=== PATIENT | female | born 1960 | race Caucasian/White ===

== ENCOUNTER 2016-04-05 11:16 | Outpatient (CLI) | payer BC | END 2016-04-05 11:17 | disposition home or self-care (01) | DX: Z79.899 Other long term (current) drug therapy (principal); Z86.2 Personal history of diseases of the blood and blood-forming organs and certain disorders involving the immune mechanism; Z71.9 Counseling, unspecified ==

== ENCOUNTER 2016-04-23 14:09 | Outpatient (CLI) | payer BC | END 2016-04-23 14:10 | disposition home or self-care (01) | DX: Z12.31 Encounter for screening mammogram for malignant neoplasm of breast (principal) ==

== ENCOUNTER 2016-04-23 14:11 | Outpatient (CLI) | payer BC | END 2016-04-23 14:12 | disposition home or self-care (01) | DX: M89.9 Disorder of bone, unspecified (principal) ==

== ENCOUNTER 2017-12-12 11:01 | Outpatient (CLI) | payer BC ==
--- NOTE | 2017-12-20 16:07 | Mammography Report ---
Reason: BILAT SCREENING WITH PEBBLES Procedure Date: 12/12/2017 Accession Number: [id number] / [id number] Procedure: JAVIER - Screening Mammo w/Pebbles CPT Code: FULL RESULT: EXAM: Screening Mammo w/Pebbles DATE: 12/12/2017 12:40 PM CLINICAL HISTORY: 57 year-old nulliparous female presents for screening mammogram. TECHNIQUE: Bilateral CC and MLO views were obtained. COMPARISON: 04/23/2016, 07/03/2013, 04/01/2010, 11/08/2008. FINDINGS: The breasts demonstrate extremely dense parenchyma bilaterally, limiting the sensitivity of mammography. Stable typically benign coarse calcifications are seen bilaterally. No suspicious masses, clustered microcalcifications, or regions of architectural distortion are identified. IMPRESSION: Benign findings RECOMMENDATION: Routine annual screening unless otherwise clinically indicated. BIRADS CATEGORY 2: Benign findings STANDARD QUALIFYING STATEMENTS: 1. This examination was not reviewed with the aid of Computer-Aided Detection (CAD). 2. A negative or benign imaging report should not delay biopsy if clinically suspicious findings are present. Consider surgical consultation if warrented. More than 5% of cancers are not identified by imaging. 3. Dense breasts may obscure an underlying neoplasm. 4. This examination was reviewed with the aid of 3D breast imaging (tomosynthesis).
== END 2017-12-12 11:02 | disposition home or self-care (01) ==
LOC: DI 11:01
PROVIDERS: ATTEND Nurse Practitioner Obstetrics & Gynecology
DX: Z12.39 Encounter for other screening for malignant neoplasm of breast (principal)
CPT/HCPCS: 77063; 77067

== ENCOUNTER 2018-10-24 | Outpatient (CLI) | payer BC | END 2018-10-24 09:02 | disposition home or self-care (01) | DX: Z00.00 Encounter for general adult medical examination without abnormal findings (principal) ==

== ENCOUNTER 2019-03-05 15:25 | Outpatient (CLI) | payer BC ==
--- NOTE | 2019-03-06 09:18 | Mammography Report ---
Reason: ROUTINE MAMMO Procedure Date: 03/05/2019 Accession Number: [id number] / [id number] Procedure: JAVIER - Screening Mammo w/Reyes CPT Code: Final Report FULL RESULT: EXAM: Screening Mammo w/Reyes DATE: 03/05/2019 4:02 PM CLINICAL HISTORY: Screening encounter. History of nulliparity. TECHNIQUE: (B) - Bilateral CC and MLO views were obtained. COMPARISON: 12/12/2017 through 04/01/2010. PARENCHYMAL PATTERN: (VD) - The breast(s) demonstrate(s) extremely dense parenchyma, limiting the sensitivity of mammography. FINDINGS: Coarse typically benign calcifications are present. There are no suspicious masses, calcifications, or areas of distortion. IMPRESSION: Benign findings. BI-RADS category 2. RECOMMENDATION: (ANNUAL) - Recommend routine annual screening mammography. BI-RADS CATEGORY: (2) - Benign Findings. STANDARD QUALIFYING STATEMENTS: 1. This examination was not reviewed with the aid of Computer-Aided Detection (CAD). 2. A negative or benign imaging report should not preclude biopsy if clinically suspicious findings are present. 3. Dense breasts may obscure an underlying neoplasm. 4. This examination was reviewed with the aid of 3D breast imaging (tomosynthesis).
== END 2019-03-05 15:26 | disposition home or self-care (01) ==
LOC: DI 15:25
DX: Z12.31 Encounter for screening mammogram for malignant neoplasm of breast (principal)
CPT/HCPCS: 77063; 77067

== ENCOUNTER 2019-09-21 10:18 | Outpatient (CLI) | payer BC ==
--- NOTE | 2019-09-21 10:30 | XRAY Report ---
Reason: CERVICAL RADICULOPATHY Procedure Date: 09/21/2019 Accession Number: [id number] / [id number] Procedure: WCP - Cervical Spine Complete CPT Code: Final Report FULL RESULT: PROCEDURE: Cervical Spine Complete INDICATIONS: CERVICAL RADICULOPATHY TECHNIQUE: 6 view(s) of the cervical spine were acquired. COMPARISON: None. FINDINGS: Bones: No fractures or dislocations to the C7 level. Mild narrowing of the C7-T1 disc space. Scattered multilevel endplate spurring and diffuse facet arthropathy. Mild narrowing of the C5-C6 disc space. The lateral masses of C1 appear intact on the odontoid view. No suspicious bony lesions. On the right, mild C5-C6 bony foraminal narrowing. On the left, no bony foraminal stenosis. Soft tissues: No prevertebral soft tissue swelling. IMPRESSION: Multilevel mild cervical spondylosis and facet arthropathy, most pronounced at C5-C6 and C7-T1. Mild right C5-6 bony foraminal narrowing Reviewed by: Luis Richards MD on 09/21/2019 10:29 AM PDT Approved by: Luis Richards MD on 09/21/2019 10:29 AM PDT Station ID: [id number]
== END 2019-09-21 23:59 | disposition home or self-care (01) ==
LOC: DI.WCP 10:18
PROVIDERS: ATTEND Physician Assistant Medical
DX: M47.22 Other spondylosis with radiculopathy, cervical region (principal)
CPT/HCPCS: 72050

== ENCOUNTER 2019-12-26 10:24 | Outpatient (CLI) | payer BC ==
--- NOTE | 2019-12-28 16:41 | MRI Report ---
PROCEDURE: Cervical Spine W/O INDICATIONS: CERVICAL RADICULOPATHY TECHNIQUE: Noncontrast sagittal T1 spin echo and T2 fast spin echo, sagittal STIR, foraminal oblique sagittal T2 fast spin echo, and axial gradient echo or T2 fast spin echo through the cervical spine. COMPARISON: X-ray cervical spine 09/21/2019 FINDINGS: Image quality: Excellent. Alignment and Curvature: There is trace retrolisthesis of C5 on C6. Bone Marrow: Marrow demonstrates normal overall signal. Spinal Cord: Visualized spinal cord has normal size and signal. No cerebellar tonsillar herniation. Paraspinous Soft Tissues: No paravertebral masses. Prevertebral soft tissues are normal in thicknes s. Discs: Mild to moderate desiccation is present throughout the cervical spine most severe at C5-6. C2-C3: No disc bulge, spinal stenosis or foraminal narrowing. C3-C4: Minimal disc bulge without spinal stenosis. [id number]-[id number] left foraminal narrowing with u ncovertebral hypertrophy. C4-C5: Minimal disc bulge without spinal stenosis. Moderate left and [id number] right foramina l narrowing with uncovertebral hypertrophy. C5-C6: Mild disc bulge with moderate spinal stenosis. Moderate bilateral foraminal narrowing with un covertebral hypertrophy. C6-C7: Mild disc bulge with minimal canal narrowing. Mild bilateral foraminal narrowing with uncover tebral hypertrophy. C7-T1: No disc bulge, spinal stenosis or foraminal narrowing. IMPRESSION: 1. Early degenerative changes most notable at C2-3, C3-4 and C4-5 demonstrating mild to moderate bila teral foraminal narrowing secondary to uncovertebral arthropathy. 2. Moderate spinal stenosis is present C5-6 secondary to disc bulge as well as retrolisthesis. Reviewed by: Ruby Mccartney MD on 12/28/2019 4:40 PM PDT Approved by: Ruby Mccartney MD on 12/28/2019 4:40 PM PDT Station ID: [id number]
== END 2019-12-26 10:25 | disposition home or self-care (01) ==
LOC: DI 10:24
PROVIDERS: ATTEND Physician Assistant Medical
DX: M47.22 Other spondylosis with radiculopathy, cervical region (principal); M50.122 Cervical disc disorder at C5-C6 level with radiculopathy
CPT/HCPCS: 72141

== ENCOUNTER 2020-03-23 07:57 | Outpatient (CLI) | payer BC ==
[2020-03-23 08:25] LABS: BASOPHILS % (AUTO) 0.3 %; EOSINOPHILS % (AUTO) 0.7 %; HCT - HEMATOCRIT 39.1 % (37.0-47.0); HGB - HEMOGLOBIN 12.9 g/dL (12.0-16.0); LYMPHOCYTES % (AUTO) 33.9 %; MEAN CORPUSCULAR HEMOGLOBIN 32.9 pg (27.0-31.0); MEAN CORPUSCULAR VOLUME 99.7 fL (81.0-99.0); MEAN PLATELET VOLUME 10.6 fL (7.9-10.8); MONOCYTES # (AUTO) 0.3 10^3/uL (0.0-1.0); MONOCYTES % (AUTO) 10.5 %; NEUTROPHILS # (AUTO) 1.6 10^3/uL (1.5-6.6); NEUTROPHILS % (AUTO) 54.6 %; PLT - PLATELET COUNT 128 10^3/uL (130-450); RBC MORPHOLOGY (MULTIPLE) 1+ ANISOCYTOSIS (NORMAL); RED BLOOD COUNT 3.92 10^6/uL (4.20-5.40); SLIDE REVIEW? Indicated; WHITE BLOOD COUNT 2.9 x10^3/uL (4.8-10.8)
[2020-03-23 08:53] LABS: THYROID STIMULATING HORMONE 6.73 uIU/mL (0.34-5.60)
[2020-03-23 09:27] LABS: ALBUMIN 3.9 g/dL (3.2-5.5); ALBUMIN/GLOBULIN RATIO 1.6 (1.0-2.2); ALKALINE PHOSPHATASE 50 IU/L (42-121); ALT ALANINE AMINOTRANSFERASE 34 IU/L (10-60); AST ASPARTATE AMINOTRANSFERASE 34 IU/L (10-42); BILIRUBIN,TOTAL 0.6 mg/dL (0.2-1.0); BUN - BLOOD UREA NITROGEN 17 mg/dL (6-20); CALCIUM 8.8 mg/dL (8.5-10.3); CARBON DIOXIDE - CO2 28 mmol/L (21-32); CHLORIDE 100 mmol/L (101-111); CHOL/HDL RATIO 2.8 (<4.4); CHOLESTEROL 187 mg/dL; CREATININE 0.6 mg/dL (0.4-1.0); GFR - MDRD 102 (>89); GLUCOSE 86 mg/dL (70-100); HDL CHOLESTEROL 66 mg/dL; POTASSIUM 3.9 mmol/L (3.5-5.0); SODIUM 137 mmol/L (135-145); TOTAL PROTEIN 6.4 g/dL (6.7-8.2); TRIGLYCERIDES 27 mg/dL
[2020-03-23 10:52] LABS: FREE T4 (FREE THYROXINE) 1.39 ng/dL (0.58-1.64)
[2020-03-24 12:28] LABS: HEPATITIS C ANTIBODY NON-REACTIVE (NON-REACTIVE)
== END 2020-03-23 07:58 | disposition home or self-care (01) ==
LOC: LAB 07:57
PROVIDERS: ATTEND Physician Assistant Medical
DX: Z00.00 Encounter for general adult medical examination without abnormal findings (principal); R20.9 Unspecified disturbances of skin sensation; E03.9 Hypothyroidism, unspecified; Z86.2 Personal history of diseases of the blood and blood-forming organs and certain disorders involving the immune mechanism; Z11.59 Encounter for screening for other viral diseases
CPT/HCPCS: 36415; 80053; 80061; 82607; 83721; 84439; 84443; 85025; 86803

== ENCOUNTER 2020-04-23 07:51 | Outpatient (CLI) | payer BC ==
[2020-04-23 08:28] LABS: BASOPHILS % (AUTO) 0.6 %; EOSINOPHILS % (AUTO) 0.9 %; HGB - HEMOGLOBIN 13.6 g/dL (12.0-16.0); LYMPHOCYTES # (AUTO) 1.2 10^3/uL (1.5-3.5); MEAN CORPUSCULAR HEMOGLOBIN 33.1 pg (27.0-31.0); MEAN CORPUSCULAR HGB CONC 32.9 g/dL (32.0-36.0); MEAN CORPUSCULAR VOLUME 100.7 fL (81.0-99.0); MEAN PLATELET VOLUME 11.1 fL (7.9-10.8); MONOCYTES # (AUTO) 0.3 10^3/uL (0.0-1.0); MONOCYTES % (AUTO) 10.1 %; NEUTROPHILS # (AUTO) 1.7 10^3/uL (1.5-6.6); NEUTROPHILS % (AUTO) 51.4 %; PLT - PLATELET COUNT 144 10^3/uL (130-450); RED BLOOD COUNT 4.11 10^6/uL (4.20-5.40); RED CELL DISTRIBUTION WIDTH 12.5 % (12.0-15.0); WHITE BLOOD COUNT 3.4 x10^3/uL (4.8-10.8)
== END 2020-04-23 07:52 | disposition home or self-care (01) ==
LOC: LAB 07:51
PROVIDERS: ATTEND Physician Assistant Medical
DX: E03.9 Hypothyroidism, unspecified (principal); D72.819 Decreased white blood cell count, unspecified
CPT/HCPCS: 36415; 84443; 85025

== ENCOUNTER 2020-05-18 07:00 | Outpatient (CLI) | payer BC ==
--- NOTE | 2020-05-18 15:27 | XRAY Report ---
PROCEDURE: Knee 3 View LT INDICATIONS: L KNEE PX TECHNIQUE: 3 views of the left knee(s) were acquired. COMPARISON: None. FINDINGS: Bones: No fractures or dislocations. No suspicious bony lesions. Soft tissues: No joint effusion. No suspicious soft tissue calcifications. IMPRESSION: No trauma found. Source of knee pain is not identified. Reviewed by: Shaun Romero MD on 05/18/2020 3:25 PM [facility] Approved by: Shaun Romero MD on 05/18/2020 3:25 PM [facility] Station ID: [id number]
== END 2020-05-18 23:59 | disposition home or self-care (01) ==
LOC: DI.N 07:00
PROVIDERS: ATTEND Physician Assistant Medical
DX: M25.562 Pain in left knee (principal); G89.29 Other chronic pain; M76.30 Iliotibial band syndrome, unspecified leg

== ENCOUNTER 2020-07-26 08:35 | Outpatient (CLI) | payer BC ==
[2020-07-26 08:51] LABS: BASOPHILS % (AUTO) 0.6 %; EOSINOPHILS % (AUTO) 0.6 %; HGB - HEMOGLOBIN 13.9 g/dL (12.0-16.0); LYMPHOCYTES # (AUTO) 1.3 10^3/uL (1.5-3.5); LYMPHOCYTES % (AUTO) 39.4 %; MEAN CORPUSCULAR HEMOGLOBIN 32.2 pg (27.0-31.0); MEAN CORPUSCULAR HGB CONC 33.1 g/dL (32.0-36.0); MEAN CORPUSCULAR VOLUME 97.2 fL (81.0-99.0); MEAN PLATELET VOLUME 10.5 fL (7.9-10.8); MONOCYTES # (AUTO) 0.3 10^3/uL (0.0-1.0); MONOCYTES % (AUTO) 9.1 %; NEUTROPHILS # (AUTO) 1.7 10^3/uL (1.5-6.6); NEUTROPHILS % (AUTO) 50.3 %; PLT - PLATELET COUNT 133 10^3/uL (130-450); RED BLOOD COUNT 4.32 10^6/uL (4.20-5.40); RED CELL DISTRIBUTION WIDTH 12.6 % (12.0-15.0); WHITE BLOOD COUNT 3.3 x10^3/uL (4.8-10.8)
[2020-07-26 09:28] LABS: THYROID STIMULATING HORMONE 1.45 uIU/mL (0.34-5.60)
== END 2020-07-26 08:36 | disposition home or self-care (01) ==
LOC: LAB 08:35
PROVIDERS: ATTEND Physician Assistant Medical
DX: E03.9 Hypothyroidism, unspecified (principal); D72.819 Decreased white blood cell count, unspecified
CPT/HCPCS: 36415; 84443; 85025

== ENCOUNTER 2021-02-27 13:57 | Outpatient (CLI) | payer BC ==
--- NOTE | 2021-02-28 14:09 | Mammography Report ---
BILATERAL DIGITAL SCREENING MAMMOGRAM 3D/2D: 02/27/2021 CLINICAL: Routine screening. Comparison is made to exams dated: 03/05/2019 mammogram, 12/12/2017 mammogram, 04/23/2016 mammogram, mammogram, and 04/01/2010 mammogram - [facility]. The tissue of both breast s is predominantly fatty. No significant masses, calcifications, or other findings are seen in either breast. There has been no significant interval change. IMPRESSION: NEGATIVE There is no mammographic evidence of malignancy. A 1 year screening mammogram is recommended. This exam was interpreted at Station ID: [id number]. NOTE: For mammograms, a report in lay terms will be sent to the patient. Approximately 15% of breast malignancies will not be visualized mammographically. In the management of a palpable breast mass, a negative mammogram must not discourage biopsy of a clinically suspicious lesion. Electronically Signed By: Tushar Lenz M.D., jr/penrad:02/27/2021 16:41:35 ACR BI-RADS Category 1: Negative 3341F PARENCHYMAL PATTERN: (F) - The breast(s) demonstrate(s) diffuse fatty replacement. BI-RADS CATEGORY: (1) - 1 RECOMMENDATION: (ANNUAL) - Recommend routine annual screening mammography. [id number] 1 year screening LATERALITY: (B)
== END 2021-02-27 13:58 | disposition home or self-care (01) ==
LOC: DI 13:57
DX: Z12.31 Encounter for screening mammogram for malignant neoplasm of breast (principal)

== ENCOUNTER 2021-04-14 10:44 | Outpatient (CLI) | payer BC ==
--- NOTE | 2021-04-14 11:22 | DEXA Report ---
PROCEDURE: Dexa Spine and/or Hip INDICATIONS: POST MENOPAUSAL TECHNIQUE: Dual energy x-ray absorptiometry (DXA) was performed on a [employer] System. Regions measur ed are the AP Spine, femoral neck, and if needed forearm. COMPARISON: None. FINDINGS: Lumbar Spine: Bone Mineral Density 1.4 g/cm/cm,T score 2.0, normal bone density Left Hip: Bone Mineral Density 0.98 g/cm/cm,T score -0.3, normal bone density Impression: Normal bone density. Patients with diagnosis of osteoporosis or osteopenia should have regular bone mineral density assess ment. For those eligible for Medicare, routine testing is allowed once every 2 years. Testing frequ ency can be increased for patients who have rapidly progressing disease or for those who are receivin g medical therapy to restore bone mass. Reviewed by: Jason Sanchez MD on 04/14/2021 11:21 AM PST Approved by: Jason Sanchez MD on 04/14/2021 11:21 AM PST Station ID: [id number]
== END 2021-04-14 10:45 | disposition home or self-care (01) ==
LOC: DI 10:44
PROVIDERS: ATTEND Physician Assistant Medical
DX: Z78.0 Asymptomatic menopausal state (principal)

== ENCOUNTER 2021-05-22 07:24 | Day surgery (SDC) | payer BC ==
[2021-05-22] MEDS ORDERED: LACTATED RINGERS 1,000 ML IV ONE ×2 (08:10→09:18)
--- NOTE | 2021-05-22 08:13 | ANESTHESIA ---
Pre-Anesthesia VS, & Labs - Diagnosis hx of colon polyps - Procedure colonoscopy Vital Signs: Temp Pulse Resp BP Pulse Ox 36.6 C 71 18 120/48 L 100 05/22/21 07:30 05/22/21 07:30 05/22/21 07:30 05/22/21 07:30 05/22/21 07:30 Height: 5 ft 5 in Weight (kg): 52 kg Body Mass Index: 19.1 BMI Classification: Healthy weight - NPO >8 hours - Is Patient ?: No Home Medications and Allergies Levothyroxine Sodium [Levothyroxine] 1 cap PO DAILY 08/23/20 Allergies/Adverse Reactions: Allergies Allergy/AdvReac Type Severity Reaction Status Date / Time No Known Drug Allergies Allergy Verified 05/19/21 13:09 Anes History & Medical History - Anesthetic History Anesthesia Complications: reports: No previous complications Family history of Anesthesia Complications: Denies Family history of Malignant Hyperthermia: Denies - Medical History Cardiovascular: reports: None Pulmonary: reports: None Gastrointestinal: reports: None Urinary: reports: None Musculoskeletal: reports: None Endocrine/Autoimmune: reports: HyPOthyroidism Skin: reports: Eczema Smoking Status: Never smoker Psychosocial: reports: Anxiety History of Cancer?: No - Surgical History Gynecologic: reports: Other Exam General: Alert, Oriented x3, Cooperative Dental: WNL Mouth Openin Fingerbreadth Neck Mobility: Normal Mallampati classification: I Thyromental Distance: 4-6 cm Respiratory: Lungs clear Cardiovascular: Regular rate Plan Anesthesia Type: Total IV Consent for Procedure(s) Verified and Reviewed: Yes Code Status: Attempt Resuscitation ASA classification: 2-Mild systemic disease Is this case an emergency?: No
[2021-05-22] MEDS ORDERED: PROPOFOL 500 MG/50 ML 500 MG/50 ML VIAL ONE (08:26)
[2021-05-22] MEDS ORDERED: MIDAZOLAM 2 MG/2 ML VIAL ONE (08:30)
[2021-05-22] MEDS ORDERED: fentaNYL 100 MCG/2 ML VIAL ONE (08:30)
[2021-05-22 09:49] VITALS: BP 91/58
--- NOTE | 2021-05-22 11:36 | ANESTHESIA POST OP EVALUATION ---
Anesthesia Post Eval - Post Anesthesia Eval Vitals: Last Vital Signs Temp 36.5 C 05/22/21 09:24 Pulse 68 05/22/21 09:48 Resp 12 05/22/21 09:48 BP 91/58 L 05/22/21 09:48 Pulse Ox 100 05/22/21 09:48 CV Function Including HR & BP: Stable Pain Control: Satisfactory Nausea & Vomiting: Negative Mental Status: Baseline Respiratory Status: Airway Patent Hydration Status: Satisfactory Anesthesia Complications: None
== END 2021-05-22 07:25 | disposition home or self-care (01) ==
LOC: SDS 07:24
PROVIDERS: ATTEND Surgery
DX: Z12.11 Encounter for screening for malignant neoplasm of colon (principal); K64.8 Other hemorrhoids; F41.8 Other specified anxiety disorders; Z86.010 Personal history of colon polyps; Z83.71 Family history of colonic polyps
CPT/HCPCS: 45378; J7120

== ENCOUNTER 2021-07-13 15:33 | Outpatient (CLI) | payer BC ==
[2021-07-13 15:49] LABS: BASOPHILS % (AUTO) 0.6 %; EOSINOPHILS % (AUTO) 0.4 %; HCT - HEMATOCRIT 41.3 % (37.0-47.0); HGB - HEMOGLOBIN 13.7 g/dL (12.0-16.0); LYMPHOCYTES # (AUTO) 1.3 10^3/uL (1.5-3.5); LYMPHOCYTES % (AUTO) 27.1 %; MEAN CORPUSCULAR HEMOGLOBIN 32.2 pg (27.0-31.0); MEAN CORPUSCULAR HGB CONC 33.2 g/dL (32.0-36.0); MEAN CORPUSCULAR VOLUME 96.9 fL (81.0-99.0); MONOCYTES # (AUTO) 0.3 10^3/uL (0.0-1.0); MONOCYTES % (AUTO) 6.3 %; NEUTROPHILS # (AUTO) 3.2 10^3/uL (1.5-6.6); NEUTROPHILS % (AUTO) 65.4 %; PLT - PLATELET COUNT 143 10^3/uL (130-450); RED BLOOD COUNT 4.26 10^6/uL (4.20-5.40); RED CELL DISTRIBUTION WIDTH 12.5 % (12.0-15.0); WHITE BLOOD COUNT 4.9 x10^3/uL (4.8-10.8)
[2021-07-13 16:18] LABS: THYROID STIMULATING HORMONE 1.18 uIU/mL (0.34-5.60)
[2021-07-13 16:20] LABS: FREE T4 (FREE THYROXINE) 1.3 ng/dL (0.58-1.64)
[2021-07-13 16:21] LABS: FREE T3 2.64 pg/mL (2.5-3.9)
[2021-07-13 16:26] LABS: FERRITIN 21.3 ng/mL (11.0-306.8)
== END 2021-07-13 15:34 | disposition home or self-care (01) ==
LOC: LAB 15:33
PROVIDERS: ATTEND Physician Assistant Medical
DX: F43.9 Reaction to severe stress, unspecified (principal)
CPT/HCPCS: 36415; 82306; 82607; 82728; 84439; 84443; 84481; 85025

== ENCOUNTER 2022-04-02 07:00 | Outpatient (CLI) | payer BC ==
[2022-04-02 12:37] LABS: BASOPHILS % (AUTO) 0.2 %; EOSINOPHILS % (AUTO) 0.7 %; HCT - HEMATOCRIT 43.3 % (37.0-47.0); LYMPHOCYTES # (AUTO) 1.2 10^3/uL (1.5-3.5); LYMPHOCYTES % (AUTO) 30.4 %; MEAN CORPUSCULAR HEMOGLOBIN 31.9 pg (27.0-31.0); MEAN CORPUSCULAR HGB CONC 32.3 g/dL (32.0-36.0); MEAN CORPUSCULAR VOLUME 98.6 fL (81.0-99.0); MEAN PLATELET VOLUME 11.9 fL (7.9-10.8); MONOCYTES # (AUTO) 0.3 10^3/uL (0.0-1.0); MONOCYTES % (AUTO) 7.4 %; NEUTROPHILS # (AUTO) 2.5 10^3/uL (1.5-6.6); NEUTROPHILS % (AUTO) 61.3 %; PLT - PLATELET COUNT 149 10^3/uL (130-450); RED BLOOD COUNT 4.39 10^6/uL (4.20-5.40); RED CELL DISTRIBUTION WIDTH 12.6 % (12.0-15.0); WHITE BLOOD COUNT 4.1 x10^3/uL (4.8-10.8)
[2022-04-02 13:05] LABS: ALBUMIN/GLOBULIN RATIO 1.5 (1.0-2.2); ALKALINE PHOSPHATASE 53 IU/L (42-121); ALT ALANINE AMINOTRANSFERASE 32 IU/L (10-60); AST ASPARTATE AMINOTRANSFERASE 33 IU/L (10-42); BILIRUBIN,TOTAL 0.8 mg/dL (0.2-1.0); BUN - BLOOD UREA NITROGEN 15 mg/dL (6-20); CALCIUM 9.3 mg/dL (8.5-10.3); CARBON DIOXIDE - CO2 31 mmol/L (21-32); CHLORIDE 99 mmol/L (101-111); CHOLESTEROL 197 mg/dL; CREATININE 0.7 mg/dL (0.4-1.0); GFR - MDRD 85 (>89); GLUCOSE 95 mg/dL (70-100); HDL CHOLESTEROL 65 mg/dL; LDL CHOLESTEROL,CALCULATED 109 mg/dL; LDL/HDL RATIO 1.7 (<4.4); POTASSIUM 3.9 mmol/L (3.5-5.0); SODIUM 136 mmol/L (135-145); TOTAL PROTEIN 6.7 g/dL (6.7-8.2); TRIGLYCERIDES 113 mg/dL; VLDL CHOLESTEROL 23 mg/dL
[2022-04-02 13:09] LABS: THYROID STIMULATING HORMONE 4.42 uIU/mL (0.34-5.60)
[2022-04-02 13:10] LABS: FREE T3 2.32 pg/mL (2.5-3.9)
[2022-04-02 13:11] LABS: FREE T4 (FREE THYROXINE) 1.32 ng/dL (0.58-1.64)
== END 2022-04-02 23:59 | disposition home or self-care (01) ==
LOC: LAB.N 07:00
PROVIDERS: ATTEND Nurse Practitioner
DX: Z00.00 Encounter for general adult medical examination without abnormal findings (principal); R10.9 Unspecified abdominal pain; F43.9 Reaction to severe stress, unspecified; B00.2 Herpesviral gingivostomatitis and pharyngotonsillitis; E03.9 Hypothyroidism, unspecified
CPT/HCPCS: 36415; 80053; 80061; 83721; 84439; 84443; 84481; 85025

== ENCOUNTER 2022-04-25 09:18 | Outpatient (CLI) | payer BC ==
[2022-04-25 12:25] LABS: AMYLASE 68 U/L (28-100); LIPASE 46 U/L (22-51)
[2022-04-25 12:30] LABS: CRP - C-REACTIVE PROTEIN < 1.0 mg/dL (0-1.0)
== END 2022-04-25 23:59 | disposition home or self-care (01) ==
LOC: LAB.N 09:18
PROVIDERS: ATTEND Registered Nurse
DX: R10.9 Unspecified abdominal pain (principal); R63.4 Abnormal weight loss; R82.79 Other abnormal findings on microbiological examination of urine
CPT/HCPCS: 36415; 82150; 83690; 86140; 87086

== ENCOUNTER 2022-05-02 16:41 | Outpatient (CLI) | payer BC ==
[2022-05-02 17:03] LABS: CREATININE 0.8 mg/dL (0.4-1.0)
[2022-05-02] MEDS ORDERED: iohexoL-300 100 ML VIAL ONE (17:04)
[2022-05-02] MEDS ORDERED: DIATRIZOATE MEGLU/DIATRIZO SOD 30 ML BOTTLE PO ONE ×2 (17:04→18:21)
[2022-05-02] MEDS ORDERED: iohexoL-300 100 ML VIAL IVP ONE (18:21)
--- NOTE | 2022-05-03 14:47 | CT Report ---
PROCEDURE: ABDOMEN/PELVIS W INDICATIONS: ABD PAIN CONTRAST: 100mL Omni 300 TECHNIQUE: After the administration of oral and IV contrast, 5 mm thick sections acquired from the diaphragms to the symphysis. 5 mm thick coronal and sagittal reformats were acquired. For radiation dose reducti on, the following was used: automated exposure control, adjustment of mA and/or kV according to kamilah ent size. COMPARISON: None. FINDINGS: Image quality: Excellent. ABDOMEN: Lung bases: Lung bases are clear. Heart size is normal. Solid organs: Tiny indeterminate hepatic hypodensities are seen, most likely cysts. Liver and spleen are normal in size and enhancement. Gallbladder is normal Biliary system is non dilated. Pancreas enhances normally. No adrenal nodules. Kidneys demonstrate normal size and enhancement, without hy dronephrosis. Peritoneum and bowel: There is segmental wall thickening of the small bowel, involving duodenum, jej unum and ileum. Bowel loops demonstrate normal caliber. No free fluid or air. Nodes and vessels: No retroperitoneal or mesenteric adenopathy by size criteria. Aorta and inferior vena cava are normal in size. Miscellaneous: No ventral hernias. PELVIS: Genitourinary: Bladder wall thickness is normal. Miscellaneous: No inguinal hernias or adenopathy. Bones: There is is small sclerotic focus in the left iliac bone, most likely a bone island. No verte bral body compression fractures. Mild levoscoliosis. Degenerative changes are noted in lumbar spine. IMPRESSION: 1. Segmental small bowel wall thickening consistent with enteritis. Etiologies may be infection or in flammatory bowel disease. Recommend clinical correlation and follow-up. Reviewed by: Elvira Jay MD on 05/03/2022 2:46 PM PST Approved by: Elvira Jay MD on 05/03/2022 2:46 PM PST Station ID: [id number]
== END 2022-05-02 16:42 | disposition home or self-care (01) ==
LOC: LAB 16:41
PROVIDERS: ATTEND Registered Nurse
DX: R10.9 Unspecified abdominal pain (principal); R63.4 Abnormal weight loss
CPT/HCPCS: 36415; 74177; 82565; Q9963; Q9967

== ENCOUNTER 2022-06-05 06:55 | Outpatient (CLI) | payer BC ==
--- NOTE | 2022-06-05 10:20 | Ultrasound Report ---
PROCEDURE: Abdomen Limited INDICATIONS: ABDOMINAL PAIN TECHNIQUE: Real-time focused scanning was performed of the abdomen, with image documentation. COMPARISON: 05/02/2022 FINDINGS: Liver: The liver is normal in size and echotexture. No intrahepatic biliary ductal dilatation or stew d mass. Multiple subcentimeter cysts in the right lobe are seen. Gallbladder: No stones, wall thickening, or pericholecystic fluid. Biliary tree: No intrahepatic biliary ductal dilatation. The common bile duct is normal measuring 5.6 mm. Pancreas: Well and has a normal appearance. Right kidney: Normal size. The right kidney has an extrarenal pelvis. No solid or cystic mass. No gena culus. IMPRESSION: No acute ultrasound abnormality of the abdomen. Reviewed by: Ryan Cline on 06/05/2022 10:19 AM PDT Approved by: Ryan Cline on 06/05/2022 10:19 AM PDT Station ID: [id number]
== END 2022-06-05 06:56 | disposition home or self-care (01) ==
LOC: DI 06:55
PROVIDERS: ATTEND Physician Assistant Medical
DX: R10.9 Unspecified abdominal pain (principal)

== ENCOUNTER 2022-07-30 08:02 | Outpatient (CLI) | payer BC ==
[2022-07-30 09:10] LABS: H. PYLORIS ANTIGEN STL NEGATIVE (Negative)
== END 2022-07-30 08:03 | disposition home or self-care (01) ==
LOC: LAB.R 08:02
PROVIDERS: ATTEND Physician Assistant Medical
DX: K29.60 Other gastritis without bleeding (principal); R10.9 Unspecified abdominal pain; B96.81 Helicobacter pylori [H. pylori] as the cause of diseases classified elsewhere
CPT/HCPCS: 87045; 87046; 87338; 87427

== ENCOUNTER 2022-08-13 09:57 | Outpatient (CLI) | payer BC | END 2022-08-13 09:58 | disposition home or self-care (01) | LOC: NS 09:57 | PROVIDERS: ATTEND Physician Assistant Medical | DX: Z71.3 Dietary counseling and surveillance (principal); R10.9 Unspecified abdominal pain; K58.9 Irritable bowel syndrome, unspecified; K29.60 Other gastritis without bleeding; B96.81 Helicobacter pylori [H. pylori] as the cause of diseases classified elsewhere | CPT/HCPCS: 97802 ==

== ENCOUNTER 2022-08-29 10:25 | Outpatient (CLI) | payer BC | END 2022-08-29 10:26 | disposition home or self-care (01) | LOC: NS 10:25 | PROVIDERS: ATTEND Physician Assistant Medical | DX: Z71.3 Dietary counseling and surveillance (principal); K29.60 Other gastritis without bleeding; R10.9 Unspecified abdominal pain; K58.9 Irritable bowel syndrome, unspecified; B96.81 Helicobacter pylori [H. pylori] as the cause of diseases classified elsewhere | CPT/HCPCS: 97803 ==

== ENCOUNTER 2023-02-18 14:31 | Outpatient (CLI) | payer BC ==
--- NOTE | 2023-02-19 13:06 | Mammography Report ---
BILATERAL DIGITAL SCREENING MAMMOGRAM 3D/2D WITH EXAGGERATED CC: 02/18/2023 CLINICAL: Routine screening. Comparison is made to exams dated: 02/27/2021 mammogram, 03/05/2019 mammogram, 12/12/2017 mammogram, mammogram, and 07/03/2013 mammogram - [facility]. Both breasts are extremely dense, which lowers the sensitivity of mammography (category d />75% gland ular tissue). No significant masses, calcifications, or other findings are seen in either breast. There has been no significant interval change. IMPRESSION: NEGATIVE There is no mammographic evidence of malignancy. A 1 year screening mammogram is recommended. Based on the Tyrer Cuzick model (a risk assessment model) the patients lifetime risk is 16.4% and he r 10 year risk is 7.3%. According to the ACR, ACS, and NCCN guidelines, an annual breast MRI exam kristi ng with mammogram is recommended if the patients lifetime risk is 20% or greater. This exam was interpreted at Station ID: [id number]. NOTE: For mammograms, a report in lay terms will be sent to the patient. Approximately 15% of breast malignancies will not be visualized mammographically. In the management of a palpable breast mass, a negative mammogram must not discourage biopsy of a clinically suspicious lesion. Electronically Signed By: Lukas castelan/mona:02/19/2023 07:15:55 letter sent: No_Letter ACR BI-RADS Category 1: Negative 3341F PARENCHYMAL PATTERN: (VD) - The breast(s) demonstrate(s) extremely dense parenchyma, limiting the sen sitivity of mammography. BI-RADS CATEGORY: (1) - 1 Mammogram [id number] 1 year screening LATERALITY: (B)
== END 2023-02-18 14:32 | disposition home or self-care (01) ==
LOC: DI 14:31
DX: Z12.31 Encounter for screening mammogram for malignant neoplasm of breast (principal); R92.343 Mammographic extreme density, bilateral breasts

== ENCOUNTER 2023-03-21 08:01 | Outpatient (CLI) | payer BC ==
[2023-03-21 08:43] LABS: BASOPHILS % (AUTO) 0.4 %; EOSINOPHILS % (AUTO) 1.1 %; HCT - HEMATOCRIT 41.2 % (37.0-47.0); HGB - HEMOGLOBIN 13.4 g/dL (12.0-16.0); LYMPHOCYTES % (AUTO) 36.6 %; MEAN CORPUSCULAR HEMOGLOBIN 31.5 pg (27.0-31.0); MEAN CORPUSCULAR HGB CONC 32.5 g/dL (32.0-36.0); MEAN CORPUSCULAR VOLUME 96.9 fL (81.0-99.0); MEAN PLATELET VOLUME 11.3 fL (7.9-10.8); MONOCYTES # (AUTO) 0.2 10^3/uL (0.0-1.0); MONOCYTES % (AUTO) 7.8 %; NEUTROPHILS # (AUTO) 1.5 10^3/uL (1.5-6.6); NEUTROPHILS % (AUTO) 54.1 %; PLT - PLATELET COUNT 134 10^3/uL (130-450); RED BLOOD COUNT 4.25 10^6/uL (4.20-5.40); RED CELL DISTRIBUTION WIDTH 12.7 % (12.0-15.0); SLIDE REVIEW? Indicated; WHITE BLOOD COUNT 2.7 x10^3/uL (4.8-10.8)
[2023-03-21 08:56] LABS: ALBUMIN 3.9 g/dL (3.2-5.5); ALBUMIN/GLOBULIN RATIO 1.9 (1.0-2.2); ALKALINE PHOSPHATASE 54 IU/L (42-121); ALT ALANINE AMINOTRANSFERASE 25 IU/L (10-60); AST ASPARTATE AMINOTRANSFERASE 25 IU/L (10-42); BILIRUBIN,TOTAL 0.5 mg/dL (0.2-1.0); BUN - BLOOD UREA NITROGEN 19 mg/dL (6-20); CALCIUM 8.9 mg/dL (8.5-10.3); CARBON DIOXIDE - CO2 30 mmol/L (21-32); CHLORIDE 100 mmol/L (101-111); CHOL/HDL RATIO 2.7 (<4.4); CHOLESTEROL 162 mg/dL; CREATININE 0.6 mg/dL (0.6-1.3); GFR - MDRD 101 (>89); GLUCOSE 76 mg/dL (74-104); HDL CHOLESTEROL 59 mg/dL; LDL CHOLESTEROL,CALCULATED 92 mg/dL; LDL/HDL RATIO 1.6 (<4.4); PLATELET ESTIMATE, MANUAL NORMAL (130-450,000) (NORMAL); PLATELET MORPHOLOGY NORMAL APPEARANCE (NORMAL); RBC MORPHOLOGY (MULTIPLE) NORMAL APPEARANCE (NORMAL); SODIUM 134 mmol/L (135-145); TRIGLYCERIDES 53 mg/dL (48-352); VLDL CHOLESTEROL 11 mg/dL
[2023-03-21 09:10] LABS: THYROID STIMULATING HORMONE 2.56 uIU/mL (0.34-5.60)
== END 2023-03-21 08:02 | disposition home or self-care (01) ==
LOC: LAB 08:01
PROVIDERS: ATTEND Physician Assistant Medical
DX: Z00.00 Encounter for general adult medical examination without abnormal findings (principal); K21.9 Gastro-esophageal reflux disease without esophagitis; Z79.899 Other long term (current) drug therapy; Z13.220 Encounter for screening for lipoid disorders; R10.9 Unspecified abdominal pain; E03.9 Hypothyroidism, unspecified; Z86.2 Personal history of diseases of the blood and blood-forming organs and certain disorders involving the immune mechanism; K58.9 Irritable bowel syndrome, unspecified; D72.819 Decreased white blood cell count, unspecified
CPT/HCPCS: 36415; 80053; 80061; 83721; 84443; 85025